=== PATIENT | male | born 1950 | race Caucasian/White ===

== ENCOUNTER 2016-12-06 09:11 | Day surgery (SDC) | payer MEDICARE ==
[2016-12-01 10:57] VITALS: BMI 35.4
[~2016-12-06 09:11] MED LIST: LIDOCAINE 1% 20 ML VIAL (10MG/ML) FOR IV START INTRADERMA PRN
[2016-12-06 09:48] VITALS: TEMP 98.4
[2016-12-06] MEDS: LACTATED RINGERS 1,000 ML IV SCH ×2 (09:56→10:29)
[2016-12-06] MEDS ORDERED: PROPOFOL 10 MG/ML 20 ML VIAL IV ONE (10:29)
--- NOTE | 2016-12-06 11:01 | P.PCN ---
Date of Procedure: 12/06/16 Procedure(s) Performed: Procedure: Total colonoscopy. Preoperative diagnosis: Screening for neoplasia, patient has history of polyps. Postoperative diagnosis: Sigmoid diverticulosis with no evidence of acute diverticulitis, strictures, polyps or cancer. Preparation: HalfLytely prep. Sedation: Was provided by anesthesia. Brief clinical history: The patient is a 66-year-old male who is scheduled for this evaluation for screening for neoplasia. He has history of polyps and his last colonoscopy was 5 years ago. He has no abdominal complaints, bleeding or anemia. Procedure: With the patient on his left lateral decubitus position and after informed consent and adequate sedation, the perianal area was inspected and it did not show any fissures or fistulas. There were no masses felt on digital rectal examination. The Olympus CFQ 160L video colonoscope was then inserted in the rectum in the usual fashion and advanced to the cecum. The preparation was good. The mucosa appeared healthy. Several diverticular orifices were seen scattered in the sigmoid, but there was no evidence of acute diverticulitis or strictures. No polyps or tumors were seen. I retroflexed the endoscope in the rectum before the endoscope was withdrawn. The patient tolerated the procedure well. Plan: The patient was reassured. Discussed dietary measures. He will follow up with you as planned and I recommended repeat exam in 5 years.
[2016-12-06 11:12] VITALS: BP 121/77; PULSE 62; RESP 14
== END 2016-12-06 11:30 | disposition home or self-care (01) ==
LOC: ORWHC2ENDO 09:11
DX: Z12.11 Encounter for screening for malignant neoplasm of colon (principal); Z86.010 Personal history of colon polyps; K57.30 Diverticulosis of large intestine without perforation or abscess without bleeding; E07.9 Disorder of thyroid, unspecified; Z79.899 Other long term (current) drug therapy
CPT/HCPCS: J2704; G0105; 45378

== ENCOUNTER → 2017-12-05 | Outpatient (CLI) | payer MEDICARE ==
--- NOTE | 2017-12-05 18:21 | MR ---
EXAMINATION TYPE: MR brain and iac wo/w con DATE OF EXAM: 12/05/2017 COMPARISON: NONE HISTORY: Dizziness and giddiness, rt ear hearing loss TECHNIQUE: Multiplanar, multisequence images of the brain and brainstem is performed without and with IV contras t, utilizing 11.5 mL intravenous Gadavist . FINDINGS: Diffusion weighted images demonstrate no evidence of a recent infarct or other diffusion ab normality. There is no extra-axial fluid collection or significant white matter signal abnormality. The ventricular system and cisternal spaces are normal in size and appearance. The brain volume is age appropriate. Midline structures demonstrate normal morphology. The craniocervical junction appears within normal limits. Post contrast images demonstrate no abnormal enhancement. The dural venous sinuses appear pa tent. There is changes of the chronic sinusitis.. Mastoid air cells are clear. No cerebellopontine angle mass or acoustic schwannoma. IMPRESSION: 1. Changes of chronic sinusitis. No significant 2. No cerebellopontine angle mass or acoustic schwannoma.
== END | disposition home or self-care (01) ==
LOC: RADMRIMAIN 17:00
PROVIDERS: ATTEND Psychiatry & Neurology Neurology
DX: R42 Dizziness and giddiness (principal)
CPT/HCPCS: 70553; A9581

== ENCOUNTER 2018-01-29 08:51 | Day surgery (SDC) | payer MEDICARE ==
[2018-01-17 16:10] VITALS: BMI 36.1
[~2018-01-29 08:51] MED LIST changes: -LIDOCAINE 1% 20 ML VIAL (10MG/ML) FOR IV START INTRADERMA PRN; +SODIUM CHLORIDE 0.9% 1,000 ML IV SCH
[2018-01-29 10:02] VITALS: TEMP 98.9
[2018-01-29 10:39] VITALS: BP 143/71; PULSE 58; RESP 16
--- NOTE | 2018-01-29 12:13 | P.PCN ---
Preoperative Diagnosis: Diagnosis Syncope/presyncope Twelve-lead ECG shows sinus rhythm normal MD narrow QRS normal ST segments normal QT intervals. No delta waves. Tilt table test per protocol Baseline blood pressure 140/71 mmHg, Baseline heart rate 57 beats a minute Patient was tilted upright at an angle of 70 per protocol there is no change in heart rate or blood pressure. He remained asymptomatic through the procedure He was laid supine at the end of the procedure Impression History of syncope/presyncope Normal heart rate and blood pressure response to upright tilting Anesthesia: none Condition: stable
== END 2018-01-29 11:32 | disposition home or self-care (01) ==
LOC: CATHEP 08:51
PROVIDERS: ATTEND Internal Medicine Clinical Cardiac Electrophysiology
DX: R55 Syncope and collapse (principal)
CPT/HCPCS: 93660

== ENCOUNTER → 2018-07-03 | Outpatient (CLI) | payer MEDICARE ==
--- NOTE | 2018-07-03 21:45 | CONS ---
CONSULTATION DATE OF SERVICE: 07/03/2018. REASON FOR CONSULTATION: Sleep apnea. HISTORY: Osvaldo is a 67, currently being investigated for obstructive sleep apnea. He snores and yet he does not have any major hypersomnia or sleepiness during the day. During a recent evaluation by ENT, he was told to have significant anatomic narrowing of his posterior pharynx and retropharyngeal and right low parietal area. For that reason, he was referred for a sleep apnea evaluation. He is under investigation for vertigo. Comorbidities include hypothyroidism and acid reflux. He goes to bed around 11 p.m., wakes up 6:30 to 7 a.m. in the morning. He has no major hypersomnia or sleepiness during the day. His Jacobson score is a 4. He denies waking up with choking or gasping sensation. No dry mouth in the morning. No anxiety or panic attacks. No nocturia, no nocturnal heartburn. No nocturnal chest pain. No shortness of breath. PAST MEDICAL HISTORY: Vertigo, hypothyroidism, and acid reflux. PAST SURGICAL HISTORY: Colonoscopies, tonsils, and adenoids. DRUG ALLERGIES: Not known. OUTPATIENT MEDICATION LIST: 1. Pepcid. 2. Low-dose aspirin. 3. Vitamin D3. 4. Levothyroxine. 5. Hydrochlorothiazide. 6. Fluticasone nasal spray. 7. . SOCIAL HISTORY: The patient is a nonsmoker. No history of alcohol. No IV drugs. He is retired. 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 REVIEW OF SYSTEMS: A 12-point review of system was done and positive findings are as mentioned in the history of present illness. Otherwise negative. PHYSICAL EXAMINATION: BP is 140/75, pulse 78, respirations 16, temperature 98.2, saturation 96% on room air. Weight is 246. Height is 5 feet 8 inches, neck size 17.5 inches, BMI 37.4. GENERAL APPEARANCE: Calm, comfortable, no acute distress. Head is atraumatic, normocephalic. LUNGS: Clear to auscultation. HEART: Sounds regular rate and rhythm. Normal S1, S2. No S3, S4. No murmurs. ABDOMEN: Soft, nontender. No organomegaly. EXTREMITIES: No edema, cyanosis or clubbing. NEUROLOGIC: Alert and oriented x3. No focal neurological deficits. PSYCHIATRIC: Negative for anxiety or depression. IMPRESSION: 1. Loud snore with significant anatomic narrowing of the posterior oropharynx, Mallampati class 4. Rule out underlying obstructive sleep apnea. 2. Obesity with a BMI of 37.4. 3. History of vertigo. 4. Acid reflux. 5. Hypothyroidism. PLAN: Overall suspicion is low. Performing home sleep study to look for any significant obstructive sleep apnea or sleep breathing disorder and treat accordingly. Encourage weight loss. No major hypersomnia or sleepiness at this point in time. MMODL / IJN: [id number] /
== END ==
LOC: SLEEP 15:18
PROVIDERS: ATTEND Internal Medicine Critical Care Medicine
DX: R06.83 Snoring (principal); E66.9 Obesity, unspecified; K21.9 Gastro-esophageal reflux disease without esophagitis; E03.9 Hypothyroidism, unspecified; Z68.37 Body mass index [BMI] 37.0-37.9, adult; Z86.69 Personal history of other diseases of the nervous system and sense organs; Z79.899 Other long term (current) drug therapy
CPT/HCPCS: 99211

== ENCOUNTER → 2020-04-06 | Outpatient (CLI) | payer MEDICARE ==
--- NOTE | 2020-04-06 15:12 | XR ---
EXAMINATION TYPE: XR chest 2V DATE OF EXAM: 04/06/2020 COMPARISON: NONE HISTORY: Fever for 2 weeks. TECHNIQUE: Frontal and lateral views of the chest are obtained. FINDINGS: Some eventration of right hemidiaphragm. Slightly elevated left hemidiaphragm. There is no focal air space opacity, pleural effusion, or pneumothorax seen. The cardiac silhouette size is wit hin normal limits. The osseous structures are intact. IMPRESSION: No suspicious acute airspace opacity.
[2020-04-06 15:21] LABS: Appearance,Urine Clear (Clear); Bilirubin,Urine Negative (Negative); Blood,Urine Negative (Negative); Color,Urine Yellow; Glucose,Urine (UA) Negative (Negative); Ketones,Urine Negative (Negative); Leukocyte Esterase,Urine Negative (Negative); Nitrite,Urine Negative (Negative); PH, Urine 7.5 (5.0-8.0); Protein,Urine Negative (Negative); Specific Gravity,Urine 1.009 (1.001-1.035); Urobilinogen,Urine <2.0 mg/dL (<2.0)
[2020-04-06 15:35] LABS: Basophils % (A) 0 %; Eosinophils # (A) 0.1 k/uL (0-0.7); Eosinophils % (A) 1 %; HCT 35.3 % (39.0-53.0); HGB 11.6 gm/dL (13.0-17.5); Lymphocytes # (A) 0.9 k/uL (1.0-4.8); Lymphocytes % (A) 10 %; MCH 29.2 pg (25.0-35.0); MCV 88.4 fL (80.0-100.0); Mean Platelet Volume 6.9; Monocytes # (A) 0.4 k/uL (0-1.0); Monocytes % (A) 5 %; Neutrophils # (A) 8.2 k/uL (1.3-7.7); Neutrophils % (A) 84 %; Platelet Count 374 k/uL (150-450); RBC 3.99 m/uL (4.30-5.90); RDW 13.7 % (11.5-15.5); WBC 9.8 k/uL (3.8-10.6)
[2020-04-07 01:25] LABS: African American GFR (CKD) 105.6 (60.0-200.0); Albumin 3.5 g/dL (3.80-4.90); Albumin/Globulin Ratio 1.67 (1.60-3.17); Anion Gap 8.7 mmol/L (4.00-12.00); BUN/Creat Ratio 13.75 Ratio (12.00-20.00); Calcium 8.6 mg/dL (8.7-10.3); Carbon Dioxide 28.3 mmol/L (21.6-31.8); Globulin 2.1 g/dL (1.6-3.3); Non-African American GFR(CKD) 91.1 (60.0-200.0); Potassium 5.1 mmol/L (3.5-5.5); Total Bilirubin 0.5 mg/dL (0.3-1.2); Total Protein 5.6 g/dL (6.2-8.2)
[2020-04-07 06:17] LABS: EBV-EA (IgG) 1.6 AI; EBV-EBNA(IgG) >8.0 AI; EBV-VCA (IgG) 6.4 AI; EBV-VCA (IgM) <0.2 AI
== END | disposition home or self-care (01) ==
LOC: LABWHC1 14:29
PROVIDERS: ATTEND Family Medicine
DX: R50.9 Fever, unspecified (principal)
CPT/HCPCS: 86665 ×2; 80053; 86663; 85025; 81003; 86664; 86644; 86645; 87086; 87502; 71046; 36415; U0003

== ENCOUNTER → 2020-04-09 | Outpatient (CLI) | payer MEDICARE ==
[2020-04-09 11:43] LABS: HCT 35.5 % (39.0-53.0); HGB 11.5 gm/dL (13.0-17.5); MCH 28.5 pg (25.0-35.0); MCHC 32.3 g/dL (31.0-37.0); MCV 88.3 fL (80.0-100.0); Mean Platelet Volume 6.6; Platelet Count 419 k/uL (150-450); RBC 4.02 m/uL (4.30-5.90); RDW 13.5 % (11.5-15.5); WBC 11.3 k/uL (3.8-10.6)
[2020-04-09 19:07] LABS: African American GFR (CKD) 105.6 (60.0-200.0); Anion Gap 6.4 mmol/L (4.00-12.00); BUN/Creat Ratio 12.5 Ratio (12.00-20.00); Calcium 8.8 mg/dL (8.7-10.3); Carbon Dioxide 29.6 mmol/L (21.6-31.8); Non-African American GFR(CKD) 91.1 (60.0-200.0); Potassium 4.4 mmol/L (3.5-5.5)
[2020-04-11 04:20] LABS: % Iron Saturation 7.17 (15.00-50.00)
[2020-04-11 04:31] LABS: Ferritin 434.1 ng/mL (22.0-322.0)
== END | disposition home or self-care (01) ==
LOC: LABWHC1 10:54
PROVIDERS: ATTEND Physician Assistant
DX: E87.1 Hypo-osmolality and hyponatremia (principal)
CPT/HCPCS: 36415; 80048; 82728; 83540; 83550; 85027

== ENCOUNTER → 2020-04-10 | Outpatient (CLI) | payer MEDICARE ==
[2020-04-10 13:25] LABS: Basophils # (A) 0.1 k/uL (0-0.2); Basophils % (A) 1 %; Eosinophils # (A) 0.2 k/uL (0-0.7); Eosinophils % (A) 2 %; HCT 32.9 % (39.0-53.0); HGB 10.6 gm/dL (13.0-17.5); Lymphocytes # (A) 1.2 k/uL (1.0-4.8); Lymphocytes % (A) 13 %; MCH 28.2 pg (25.0-35.0); MCHC 32.1 g/dL (31.0-37.0); MCV 87.9 fL (80.0-100.0); Mean Platelet Volume 6.6; Monocytes # (A) 0.6 k/uL (0-1.0); Monocytes % (A) 6 %; Neutrophils # (A) 7.6 k/uL (1.3-7.7); Neutrophils % (A) 77 %; Platelet Count 395 k/uL (150-450); RBC 3.74 m/uL (4.30-5.90); RDW 13.4 % (11.5-15.5); WBC 9.8 k/uL (3.8-10.6)
== END | disposition home or self-care (01) ==
LOC: LABWHC1 11:27
PROVIDERS: ATTEND Physician Assistant
DX: D72.829 Elevated white blood cell count, unspecified (principal)
CPT/HCPCS: 36415; 85025

== ENCOUNTER → 2020-05-26 | Outpatient (CLI) | payer MEDICARE | END | disposition home or self-care (01) | LOC: LABWHC1 13:04 | PROVIDERS: ATTEND Ophthalmology | DX: G70.01 Myasthenia gravis with (acute) exacerbation (principal); E05.00 Thyrotoxicosis with diffuse goiter without thyrotoxic crisis or storm | CPT/HCPCS: 36415; 83519 ==

== ENCOUNTER → 2020-06-05 | Outpatient (CLI) | payer MEDICARE ==
[2020-06-05 13:52] LABS: African American GFR (CKD) >90 (>60 ml/min/1.73 sqM); Blood Urea Nitrogen 12 mg/dL (9-20); Non-African American GFR(CKD) 87 (>60 ml/min/1.73 sqM)
--- NOTE | 2020-06-05 18:18 | CT ---
CT ORBITS WITHOUT IV CONTRAST CLINICAL INDICATION: Graves' disease. COMPARISON: None. TECHNIQUE: Multiple thin slice images were obtained through the orbits. Coronal and sagittal reforma ts were performed. No contrast given. FINDINGS: There is exophthalmos measuring up to 26 mm anterior to the interzygomatic line bilaterally. The glob es have a symmetric contour. The inferior rectus, medial rectus, lateral rectus, and superior group extraocular muscles bilaterally are within normal range for size. There is mild fatty attenuation of the bilateral inferior rectus muscles. Orbital negron appear intact. The orbital fat appears unremark able. There is grossly symmetric appearance of the bilateral optic nerves. There is diffuse mucosal thickening of the paranasal sinuses. Visualized mastoid air cells are clear. Rightward deviation of nasal septum and rightward nasal spur. IMPRESSION: 1. Bilateral exophthalmos, and mild fatty attenuation of the bilateral inferior rectus extraocular mu scles, which can be seen with thyroid associated orbitopathy.
== END | disposition home or self-care (01) ==
LOC: RADCTMAIN 13:19
PROVIDERS: ATTEND Ophthalmology
DX: H05.20 Unspecified exophthalmos (principal); H04.123 Dry eye syndrome of bilateral lacrimal glands; E05.00 Thyrotoxicosis with diffuse goiter without thyrotoxic crisis or storm
CPT/HCPCS: 82565; 84520; 70482; Q9967

== ENCOUNTER → 2021-11-10 | Outpatient (CLI) | payer MEDICARE ==
--- NOTE | 2021-11-10 10:57 | US ---
EXAMINATION TYPE: US carotid duplex BILAT DATE OF EXAM: 11/10/2021 COMPARISON: NONE CLINICAL HISTORY: H35.62 Retinal hemorrhage Left eye. Pt states abnormal eye exam at Dr's office EXAM MEASUREMENTS: RIGHT: Peak Systolic Velocity (PSV) cm/sec ----- Right CCA: 93.0 ----- Right ICA: 84.1 ----- Right ECA: 114.0 ICA/CCA ratio: 0.9 RIGHT: End Diastole cm/sec ----- Right CCA: 14.9 ----- Right ICA: 11.4 ----- Right ECA: 13.9 LEFT: Peak Systolic Velocity (PSV) cm/sec ----- Left CCA: 77.3 ----- Left ICA: 76.4 ----- Left ECA: 100.7 ICA/CCA ratio: 1.0 LEFT: End Diastole cm/sec ----- Left CCA: 14.5 ----- Left ICA: 27.6 ----- Left ECA: 12.8 VERTEBRALS (direction of flow): Right Vertebral: Unable to visualize flow Left Vertebral: Unable to visualize flow Rhythm: Normal No significant stenosis seen bilaterally, however bilateral vertebral arteries unable to visualize bl ood flow IMPRESSION: No evidence for hemodynamically significant stenosis. No flow visualized within the vert ebral arteries. Consider CTA correlation. Criteria for Assigning % of Stenosis / Diameter reduction (Estimation based on the indirect measurements of the internal carotid artery velocities (ICA PSV). 1. Normal (no stenosis)=ICA PSV < 125 cm/s: ratio < 2.0: ICA EDV<40 cm/s. 2. Less than 50% stenosis=ICA PSV < 125 cm/s: ratio < 2.0: ICA EDV<40 cm/s. 3. 50 to 69% stenosis=ICA PSV of 125 to 230 cm/s: ration 2.0 ? 4.0: ICA EDV 40-100 cm/s. 4. Greater than 70% stenosis to near occlusion= ICA PSV > 230 cm/s: ratio > 4.0: ICA EDV > 100 cm/s. 5. Near occlusion= ICA PSV velocities may be low or undetectable: variable ratio and ICA EDV. 6. Total occlusion=unable to detect flow.
== END | disposition home or self-care (01) ==
LOC: RADUSWWP 10:16
PROVIDERS: ATTEND Ophthalmology
DX: H35.62 Retinal hemorrhage, left eye (principal)
CPT/HCPCS: 93880

== ENCOUNTER 2022-02-15 10:16 | Day surgery (SDC) | payer MEDICARE ==
[~2022-02-15 10:16] MED LIST changes: +LACTATED RINGERS 1,000 ML IV SCH; +LIDOCAINE 1% (10MG/ML) FOR IV START INTRADERMA PRN; -SODIUM CHLORIDE 0.9% 1,000 ML IV SCH
[2022-02-15 10:43] VITALS: TEMP 97
[2022-02-15 10:47] LABS: Glucose,Whole Blood 97 mg/dL (70-110)
[2022-02-15] MEDS ORDERED: PROPOFOL 10 MG/ML 20 ML VIAL IV ONE (11:42)
--- NOTE | 2022-02-15 12:03 | P.PCN ---
Date of Procedure: 02/15/22 Procedure(s) Performed: BRIEF HISTORY: Patient is a 71-year-old pleasant white male scheduled for an elective colonoscopy as a part of screening for colon cancer and family history of colon cancer. His mother was diagnosed with colon cancer at age 80 PROCEDURE PERFORMED: Colonoscopy. PREOPERATIVE DIAGNOSIS: Screening for colon cancer and family history of colon cancer. IV sedation per Anesthesia. PROCEDURE: After informed consent was obtained, the patient, was brought into the endoscopy unit. IV sedation was administered by Anesthesia under continuous monitoring. Digital rectal examination was normal. Initially the Olympus CF-160 flexible video colonoscope was then inserted in the rectum, gradually advanced into the cecum without any difficulty. Careful examination was performed as the scope was gradually being withdrawn. Ileocecal valve and the appendiceal orifice were visualized and appeared normal. Prep was excellent. Mucosa of the cecum, ascending colon, transverse colon, descending colon, sigmoid colon, and rectum appeared normal. Scattered sigmoid diverticula Retroflexion was performed in the rectum and no lesions were seen. The patient tolerated the procedure well. IMPRESSION: Normal-appearing colon from rectum to cecum with no evidence of colorectal . Scattered sigmoid diverticulosis. RECOMMENDATIONS: Findings of this examination were discussed with the patient as well as his family. He was advised to have a repeat screening colonoscopy in 5 years from now because of the family history of colon cancer..
[2022-02-15 12:10] VITALS: BP 118/64; PULSE 53; RESP 12
== END 2022-02-15 12:36 | disposition home or self-care (01) ==
LOC: ORWHC2ENDO 10:16
PROVIDERS: ATTEND Internal Medicine Gastroenterology
DX: Z12.11 Encounter for screening for malignant neoplasm of colon (principal); K57.30 Diverticulosis of large intestine without perforation or abscess without bleeding; Z80.0 Family history of malignant neoplasm of digestive organs; I10 Essential (primary) hypertension; E07.9 Disorder of thyroid, unspecified; H81.09 Meniere's disease, unspecified ear; K21.9 Gastro-esophageal reflux disease without esophagitis; Z79.899 Other long term (current) drug therapy; Z90.89 Acquired absence of other organs
CPT/HCPCS: J2704; G0105; 45378